=== PATIENT | male | born 1940 | race Caucasian/White ===

== ENCOUNTER 2023-09-10 07:05 | Emergency (ER) | payer OTHER, SELFPAY ==
[2023-09-10] VITALS (7 sets, daily range): BP systolic 116–149; BP diastolic 54–79
[2023-09-10 07:25] LABS: % Basophils 0.6 % (0-2); % Eosinophils 2.7 % (0-6); % Immature Granulocytes 0.5 % (0-0.5); % Monocytes 6.8 % (1.7-9.3); % Neutrophils 57.4 % (42.2-75.2); Absolute Basophils 0.1 10^3/uL (0-0.2); Absolute Eosinophils 0.2 10^3/uL (0-0.7); Absolute Lymphocytes 2.6 10^3/uL (1.2-3.4); Absolute Monocytes 0.6 10^3/uL (0.1-0.6); Absolute Neutrophils 4.7 10^3/uL (1.4-6.5); Hematocrit 45.8 % (39.0-52.0); Hemoglobin 14.9 g/dL (13.0-18.0); Mean Corp Hgb Conc. 32.5 g/dL (33.0-37.0); Mean Corpuscular Hgb 28.7 pg (27.0-31.0); Mean Corpuscular Volume 88.1 fL (80.0-94.0); Mean Platelet Volume 10.6 fL (7.4-10.4); Nucleated Red Blood Cells % 0 % (-); Platelet Count 234 10^3/uL (130-400); Red Cell Dist. Width 14.6 % (11.5-14.5); White Blood Cell Count 8.2 10^3/uL (4.8-10.8)
--- NOTE | 2023-09-10 07:25 | ED.GENMED ---
History of Present Illness
General
Chief Complaint: Chest Pain
Source: patient, family, ambulance crew and custodial
Exam Limitations: clinical condition and dementia
Time Seen by Provider: 09/10/23 07:10
Nursing documentation reviewed up to this point in time: agreed with
Travel History
Have you had any contact with someone who has COVID-19?: No
Do you have any symptoms of coronavirus? Fever > 100 degrees, chills, cough, shortness of breath, sore throat, loss of taste or smell, muscle aches, or headache?: No
History of Present Illness
History of Present Illness:
Patient is an 82-year-old male with a history of dementia, paraplegia, hypertension, insulin-dependent diabetes, chronic neurogenic bladder with an indwelling Matos and chronic UTIs who presents from custodial after complaining of chest pain.
Patient does not really know the time of onset of the symptoms but says that it was a couple of hours ago. Initially he was less responsive, eyes open and following commands but not really speaking much which according to his son is his baseline,
he waxes and wanes where he wants to participate in conversation. Patient then did begin speaking saying that he had chest pain but it resolved. According to EMS patient was still having pain when they got there and they gave him aspirin and now
his pain is better. Patient's son is the NAUN and was in the waiting room. I was able to speak with him, he said that he has had something similar before where it was positional, he complained of chest discomfort but when he was repositioned it
went away. The patient has a DNR, signed comfort measures only but apparently the son was called by the nursing staff when patient was complaining this morning and the son Behzad said if patient complained enough and wanted to go to the hospital that
he could. He would however decline any interventions if he were to be having a heart attack. He is not on hospice care. Patient has not had any known fever, cough, shortness of breath, vomiting, diarrhea.
Past History
Past History
ED Past Medical History: HTN, NIDDM and Other (Spinal stenosis, dementia, kidney disease,paraplegia, heel and sacral ulcers)
ED Past Surgical History: Other
Social History
Tobacco: Other
Alcohol: Other
Drug: Other
Personal: Other
Living: custodial
Employment: Other
Family History
Family History: Unable to obtain
Phy Exam
Physical Exam
Physical Exam:
GENERAL: Alert , in no apparent distress
EYE: pupils equal and reactive
NECK: Supple
ENT: o/p clr, mmm.
CARDIAC: Regular rate and rhythm .
LUNGS: Clear breath sounds bilaterally, no acute respiratory distress, no wheezes/rales/rhonchi
ABDOMEN: Soft, without focal tenderness, no r/g, no cvat, normal bowel sounds
NEUROLOGICAL: Alert and oriented x2, no obvious cranial nerve deficits, strength sensation intact upper extremities, paraplegia, occasionally confused or stares and does not answer selectively
SKIN: Warm and dry, skin intact.
MUSCULOSKELETAL: No edema, well perfused. neg chance's sign
PSYCH: Dementia
Scores
Heart Score for Chest Pain Patients
STEMI patient?: No
History: Slightly or Non-Suspicious
ECG: Nonspecific Repolarization
Age: >/= 65 years
Risk Factors: >/= 3 Risk Factors or History of CAD
Troponin: </= Normal Limit
Heart Score for Chest Pain Patients: 5
Heart Score Risk: 20.3% MACE over next 6 weeks
Course
Orders/Labs/Results
Orders:
Orders
09/10/23 07:10
Electrocardiogram (*1) Urgent
Reason for Study: Chest Pain
EKG- Treatment ONCE
CR Chest - 2 Views Urgent
Comment:
Reason For Exam: cp
09/10/23 07:16
Basic Metabolic Panel Urgent
Complete Blood Count/With Diff Urgent
Troponin I Urgent
09/10/23 08:18
EKG- Treatment ONCE
09/10/23 10:30
Electrocardiogram (*1) Urgent
Reason for Study: Chest Pain
09/10/23 11:25
Troponin I Urgent
09/10/23 12:02
Potassium Urgent
Abnormal Lab Results
09/10/23
07:16
MCHC 32.5 L g/dL
(33.0-37.0)
RDW 14.6 H %
(11.5-14.5)
MPV 10.6 H fL
(7.4-10.4)
BUN 29 H mg/dl
(9-20)
Glucose 201 H mg/dl
(70-99)
Calcium 8.1 L mg/dl
(8.4-10.2)
09/10/23 07:16
Vital Signs
Initial and Last Documented VS:
Initial Vital Signs
Temp Pulse Resp BP Pulse Ox
97.8 F 60 20 149/74 99
09/10/23 07:11 09/10/23 07:11 09/10/23 07:11 09/10/23 07:11 09/10/23 07:11
Last Documented Vital Signs
Temp Pulse Resp BP Pulse Ox
97.8 F 67 12 131/54 96
09/10/23 07:11 09/10/23 13:00 09/10/23 13:00 09/10/23 11:00 09/10/23 13:00
MDM/Problems Addressed
Differential Diagnosis Includes:
acs, muscle pain, gerd, anxiety, spasm
MDM/Problems Addressed:
82 y/o M with ho CKD, HTN, paraplgia, dementia, DM
here with vamshi boxin apparently this am [id number]
i spoke with Rn who said he started complaining when they checked on him this morning
they spoke with pt's son who is POA and son said that if his dad wanted to come in, to send him
though he has DNR, comfort measures only
son says even if pt was having WA, they would not intervene
pt is pain free here
he is slightly confused, aware he is in the hospital but is selevtive with question ansering
pt otherwise looks well
abdomen notnender
ekg it self nonischemic but he used to have LBBB and no longe rdose
1st trop was neg
d/w ed attending, plan for repeat trop, suspcion for ACS low
cxr independently reviewed and neg
pt repeat ekg unchanged from first ekg and 2nd trop neg
unfortunately his potassium hemolyzed 3 times
i spoke with family about drawing another one, and ultimately they declined - pt's renal fnunction is normal so unlikely to be conributory but i did offer to call phleboltomy to re draw but family and pt declined.
i received a phone call from dr. sahni regarding pt's ekg being changed from basleine
pt is not having qrs widening, in fact more narrowing
d/w ed attending
d/c home.
*Critical Care Note
Total Time (30-74mins, 75-104mins- exclusive of procedures): Not Applicable
ED Attending Note
-
Portions of this chart may have been created with voice recognition software.� Occasional wrong word or��sound alike� substitutions may have occurred due to the inherent limitations of voice recognition software.
Discharge Plan
Departure
Patient Disposition: Correction/SNF
Date of Disposition: 09/10/23
Time of Disposition: 13:03
Patient with high blood pressure during this ER visit?: Yes
Condition: Fair
Discharge Problem:
Chest pain
Instructions: Chest Pain PCP Follow Up
Prescriptions:
No Action
acetaminophen 500 MG tablet
1,000 mg PO TIDPRN PRN (Reason: mild pain)
tamsulosin 0.4 MG capsule
0.4 mg PO QPM
metoprolol tartrate 50 MG tablet
50 mg PO BID
docusate sodium [Colace] 100 MG capsule
200 mg PO QPM
folic acid 1 MG tablet
1 mg PO QPM
levetiracetam 750 MG tablet
750 mg PO BID
cholecalciferol (vitamin D3) [Vitamin D3] 1,000 UNIT capsule
1,000 unit PO DAILY
pregabalin [Lyrica] 100 MG capsule
50 mg PO HS
Patient Comments:
10/12/2022: last filled 09/10/22, 90 tabs for 90 days from [facility]
Toujeo SoloStar U-300 Insulin 300 UNIT/ML insulin pen
42 unit SC HS
Centrum Chewables 1 EACH tablet,chewable
1 ea PO DAILY
allopurinol 100 MG tablet
100 mg PO DAILY@1400
polyethylene glycol 3350 17 gram Powder In Packet
17 g PO DAILY Qty: 1 0RF
cefdinir 300 mg Capsule
300 mg PO Q12 Qty: 3 0RF
insulin lispro [Humalog KwikPen Insulin] 100 unit/mL insulin pen
8 unit SC DAILY Qty: 0 0RF
insulin lispro [Humalog KwikPen Insulin] 100 UNIT/ML insulin pen
10 units SC BID@1200,1600 Qty: 0 0RF
Referrals:
Gabbi Roberto MD [Family Provider] - Follow up in 2-3 days
Activity Restrictions/Additional Instructions:
WE ARE NOT SURE THE CAUSE OF YOUR PAIN - YOU HAD NO SIGNS OF A HEART ATTACK
YOUR CHEST XRAY LOOKED CLEAR
RETURN FOR ANY CONCERNS
Interventions
Interventions:
*Risk Screen - Suicide Last Done: 09/10/23 07:11
*General Assessment Last Done: 09/10/23 07:11
*Neglect/Abuse Screening Last Done: 09/10/23 07:11
*ED COVID-19 Vaccine History Last Done: 09/10/23 08:00
ED- Cardiac Assessment Last Done: 09/10/23 08:00
[2023-09-10 07:51] LABS: Blood Urea Nitrogen 29 mg/dl (9-20); Calcium 8.1 mg/dl (8.4-10.2); Carbon Dioxide 22 mmol/L (22-30); Chloride 107 mmol/L (98-107); Estimated Creatinine Clearance 49 ml/min; Glucose 201 mg/dl (70-99); Sodium 135 mmol/L (135-145); eGFR > 60.00
[2023-09-10 08:08] LABS: Troponin I < 0.012 ng/ml
[2023-09-10 12:13] LABS: Troponin I < 0.012 ng/ml
== END 2023-09-10 15:50 ==
LOC: EMR 07:05
PROVIDERS: EMERGENCY PHYSICIAN Emergency Medicine; FAMILY PHYSICIAN Internal Medicine Geriatric Medicine
DX: R07.89 Other chest pain (principal); F03.94 Unspecified dementia, unspecified severity, with anxiety; E11.22 Type 2 diabetes mellitus with diabetic chronic kidney disease; I12.9 Hypertensive chronic kidney disease with stage 1 through stage 4 chronic kidney disease, or unspecified chronic kidney disease; N18.9 Chronic kidney disease, unspecified; G82.20 Paraplegia, unspecified; I25.10 Atherosclerotic heart disease of native coronary artery without angina pectoris; K21.9 Gastro-esophageal reflux disease without esophagitis; N31.9 Neuromuscular dysfunction of bladder, unspecified; Z51.5 Encounter for palliative care; Z66 Do not resuscitate; Z87.440 Personal history of urinary (tract) infections
CPT/HCPCS: 99283; 71046; 80048; 84484; 85025; 93005